=== PATIENT | female | born 1965 | race Caucasian/White ===

== ENCOUNTER 2020-10-29 16:40 | Emergency (ER) | payer BC, SELFPAY ==
--- NOTE | ~2020-10-29 | XR_ITS ---
EXAMINATION: XR chest 1V portable DATE: 10/29/2020 20:45 INDICATION: Transient alteration of awareness. TECHNIQUE: A single frontal view of the chest was obtained. COMPARISON: Chest 2 views 03/15/2017, chest CT 03/15/2017 FINDINGS: The chest demonstrates clear lungs without pneumonia, pleural effusion, or pneumothorax. Th e heart size is normal. IMPRESSION: 1. No acute cardiopulmonary disease. Reviewed, dictated and finalized at location A.
[2020-10-29 16:42] VITALS: BP 155/74; PULSE 73; RESP 20; TEMP 36.8; O2SAT 100
--- NOTE | 2020-10-29 16:46 | ECG_ITS ---
Measurements Intervals [place] Rate: 69 P: -3 [place]: 146 QRS: -25 QRSD: 85 T: 11 QT: 390 QTc: 421 Interpretive Statements SINUS RHYTHM POOR R WAVE PROGRESSION, ANTERIOR LEADS MINIMAL Q WAVES- HIGH LATERAL LEADS BORDERLINE T WAVE ABNORMALITY- INFERIOR LEADS BORDERLINE ECG Electronically Signed On 10-29-2020 20:09:37 CDT by Rom Velasco D.O.
--- NOTE | 2020-10-29 17:13 | ED.AMS ---
HPI - Altered Mental Status General Chief Complaint: Altered Mental Status Stated Complaint: CONFUSION, ? COVID Time Seen by Provider: 10/29/20 17:13 History of Present Illness HPI narrative: She reports that she had sharp pain in the chest and back at home. It was associated with SOB. She says that this felt similar to when she had a PE in the past. The chest pain has resolved, but she still has some pain in the back. Apparently after this pain started she had a period of confusion. She was reportedly acting like she does when she has hepatic encephalopathy. This semms to have resolved as well. She is on lovenox. Related Data Home Medications Medication Instructions Recorded Confirmed atorvastatin 20 mg PO DAILY 10/29/20 blood sugar diagnostic [Accu-Chek 10/29/20 10/29/20 Guide test strips] blood-glucose meter [Accu-Chek 10/29/20 10/29/20 Guide Me Glucose Mtr] cyanocobalamin (vitamin B-12) 500 mcg PO DAILY 10/29/20 enoxaparin 100 mg SUBCUT Q12H 10/29/20 gabapentin 600 mg PO HS 10/29/20 insulin glargine 22 unit SUBCUT HS 10/29/20 lactulose 15 ml PO DAILY 10/29/20 lansoprazole 30 mg PO DAILY 10/29/20 metoprolol tartrate 25 mg PO DAILY 10/29/20 Allergies Allergy/AdvReac Type Severity Reaction Status Date / Time tetracycline Allergy Mild Unknown Verified 10/29/20 19:50 amitriptyline Allergy Unknown Unknown Verified 10/29/20 19:50 doxycycline Allergy Unknown Unknown Verified 10/29/20 19:50 tramadol Allergy Unknown Hives / Verified 10/29/20 19:50 Red Face TRYPTALINE Allergy Mild Unknown Uncoded 10/29/20 19:50 Review of Systems Review of Systems: All systems reviewed & are unremarkable except as noted in HPI and below Constitutional: Constitutional: Denies fever(s) ENT: Reports dizziness Cardiovascular: Cardiovascular: Reports chest pain Respiratory: Respiratory: Denies cough and Reports dyspnea Gastrointestinal: Gastrointestinal: Denies abdominal pain and Reports nausea Genitourinary: Genitourinary: Reports no additional female genitourinary complaints Musculoskeletal: Musculoskeletal: Reports back pain Neurologic: Reports confusion, Reports dizziness and Reports weakness PMF Family History Family History (Updated 06/29/14 @ 11:22 by DOCTOR UNKNOWN) Other Carcinoma of colon Diabetes mellitus Family history of cardiovascular disease Social History Social History Smoking status: Current every day smoker Alcohol intake: never Gender identity (if verbalized by the patient): Female Exam Const: General: no acute distress and alert Nutritional Appearance: obese Orientation/consciousness: patient oriented x3 HENMT: Head: normal to inspection Eyes: Pupils: Equal, round and reactive pupils present Resp: Effort & Inspection: normal respiratory effort Auscultation: clear to auscultation bilaterally Cardio: Rate: regular rate Rhythm: regular rhythm GI: GI Palp: Yes Soft to palpation and No Tenderness to palpation present (GI) Skin: General skin exam: normal color Neuro: General: patient oriented x3, moves all extremities, no focal motor deficits and CN's II-XI intact bilaterally Speech: normal speech Extrem: General: normal to inspection and no edema Course Vital Signs Vital signs: Vital Signs Temperature 36.8 C 10/29/20 16:42 Pulse Rate 73 10/29/20 16:42 Respiratory Rate 20 10/29/20 16:42 Blood Pressure 155/74 H 10/29/20 16:42 Pulse Oximetry 100 10/29/20 16:42 Temperature 36.8 C 10/29/20 16:42 Pulse Rate 72 10/29/20 21:14 Respiratory Rate 16 10/29/20 21:14 Blood Pressure 130/60 10/29/20 21:14 Pulse Oximetry 100 10/29/20 21:14 MDM - Altered Mental Status MDM Narrative Medical decision making narrative: Work-up unrevealing. EKG shows no acute changes. Troponin negative x2. Medical Records Attestation: I reviewed the patient's medical records. Lab Data Attestation: I reviewed the patient's lab results. Resu
[2020-10-29 17:41] VITALS: BP 125/66; PULSE 67; RESP 18; O2SAT 98
[2020-10-29 17:43] LABS: Basophils Percent Auto 0.5 % (0.2-1.2); Eosinophils Absolute Auto 0.2 K/mm3 (0-0.3); Hematocrit 40.5 % (37.0-47.0); Hemoglobin 13.8 g/dL (12.0-15.0); Immature Granulocyte Absolute 0.01 K/mm3 (0.00-0.031); Immature Granulocyte Percent A 0.2 % (0-0.5); Immature Platelet Fraction Pct 7.2 % (0.9-11.2); Lymphocytes Percent Auto 40.4 % (18.3-44.2); Mean Corpuscular HGB Conc 34.1 g/dl (32-36); Mean Corpuscular Hemoglobin 32.3 pg (26-34); Mean Corpuscular Volume 94.8 fl (80-100); Mean Platelet Volume 11.2 fl (7.4-10.4); Monocytes Absolute Auto 0.4 K/mm3 (0.1-0.6); Monocytes Percent Auto 6.5 % (2.6-8.5); Neutrophils Absolute Auto 2.8 K/mm3 (1.3-6.7); Neutrophils Percent Auto 49.4 % (45.5-73.1); Platelet Count Result 120 k/mm3 (150-375); Red Blood Count 4.27 M/mm3 (4.2-5.4); White Blood Count 5.7 K/mm3 (4.5-10.0)
[2020-10-29 17:46] LABS: Ammonia < 9 umol/L (9-30)
[2020-10-29 17:55] LABS: Alanine Aminotransferase 35 U/L (4-35); Albumin Level 3.9 g/dL (3.5-5.1); Alkaline Phosphatase 133 U/L (38-126); Anion Gap 8 mmol/L (8-16); Aspartate Amino Transferase 41 U/L (14-36); Bilirubin,Total 0.5 mg/dL (0.2-1.3); Blood Urea Nitrogen 10 mg/dL (7-17); Calcium 9.5 mg/dL (8.4-10.2); Carbon Dioxide 24 mmol/L (22-30); Chloride 102 mmol/L (98-107); Estimated CRCL calculation 89 ml/min; Estimated Glomerular Filt Rate > 60; Glucose 187 mg/dL (65-110); Potassium 3.7 mmol/L (3.4-5.0); Sodium 134 mmol/L (137-145)
[2020-10-29 17:57] LABS: Add Urine Microscopic? NO; Appearance Urine Clear (Clear); Bilirubin Urine Negative (Negative); Blood Urine Negative (Negative); Color Urine Yellow (Yellow); Glucose Urine UA Negative (Negative); Ketones Urine Negative (Negative); Leukocyte Esterase Ur Negative LEU/UL (Negative); Nitrate Urine Negative (Negative); Protein Urine Negative (Negative); Urobilinogen Urine Negative mg/dL (<2.0)
[2020-10-29 19:01] VITALS: BP 105/56; PULSE 62; RESP 24; O2SAT 99
[2020-10-29 19:05] LABS: Troponin I < 0.012 ng/mL (0.000-0.034)
[2020-10-29 19:42] LABS: INR 0.9; Prothrombin Time 12.5 Seconds (11.1-14.7)
[2020-10-29 19:43] LABS: Partial Thromboplastin Time 28.8 SECONDS (22.3-36.8)
[2020-10-29 20:43] LABS: Troponin I 0.013 ng/mL (0.000-0.034)
[2020-10-29 21:14] VITALS: BP 130/60; PULSE 72; RESP 16; O2SAT 100
== END 2020-10-29 21:09 | disposition home or self-care (01) ==
PROVIDERS: Emergency Provider Emergency Medicine
DX: R07.9 Chest pain, unspecified (principal); R41.82 Altered mental status, unspecified; R06.02 Shortness of breath; F17.200 Nicotine dependence, unspecified, uncomplicated
CPT/HCPCS: 36415; 71045; 80053; 81003; 82140; 84484; 85025; 85055; 85610; 85730; 93005; 99284

== ENCOUNTER 2023-07-03 18:08 | Emergency (ER) | payer MEDICAID, SELFPAY ==
--- NOTE | ~2023-07-03 | CT_ITS ---
EXAMINATION: CTA chest PE protocol DATE: 07/03/2023 22:36 INDICATION: Chest pain. Shortness of breath. TECHNIQUE: Computed tomography angiography (CTA) of the chest was performed with 100 mL Omnipaque-350 intravenous contrast timed to evaluate the pulmonary arteries. Coronal maximum intensity projection 3D-reconstructions were created by the technologist. Automated exposure control and iterative reconst ruction technique were employed. The dose-length product was 313.82 mGy-cm. COMPARISON: Chest CT 03/15/2017 FINDINGS: The lungs demonstrate mild atelectasis. There is air trapping in lateral segment right midd le lobe. No pleural effusion. The heart size is normal. There is no pulmonary embolus. There are aguirre ges of cholecystectomy. The liver demonstrates surface nodularity, consistent with cirrhosis. There i s mild thoracic spondylosis. IMPRESSION: 1. No pulmonary embolus. 2. Cirrhosis of the liver. Reviewed, dictated and finalized at location E.
--- NOTE | ~2023-07-03 | XR_ITS ---
EXAMINATION: XR chest 2V DATE: 07/03/2023 18:31 INDICATION: Sternal chest pain. TECHNIQUE: Frontal and lateral views of the chest were obtained. COMPARISON: Chest single view 10/29/2020 FINDINGS: There is no pneumonia, pleural effusion, or pneumothorax. The heart size is normal. There a re surgical clips in the abdomen. IMPRESSION: 1. No acute cardiopulmonary disease. Reviewed, dictated and finalized at location E.
--- NOTE | 2023-07-03 18:10 | ECG_ITS ---
SEE SCANNED COPY FOR CONFIRMED REPORT MTDD
[2023-07-03 18:11] VITALS: BP 151/78; PULSE 72; RESP 18; TEMP 36.5; O2SAT 100
[2023-07-03 18:36] LABS: Basophils Percent Auto 0.3 % (0.2-1.2); Eosinophils Absolute Auto 0.2 K/mm3 (0-0.3); Eosinophils Percent Auto 2.5 % (0-4.4); Hematocrit 36.6 % (37.0-47.0); Hemoglobin 12.6 g/dL (12.0-15.0); Immature Granulocyte Absolute 0.02 K/mm3 (0.00-0.031); Immature Granulocyte Percent A 0.3 % (0-0.5); Immature Platelet Fraction Pct 4.8 % (0.9-11.2); Lymphocytes Absolute Auto 2.43 K/mm3 (0.9-3.2); Lymphocytes Percent Auto 33.6 % (18.3-44.2); Mean Corpuscular HGB Conc 34.4 g/dl (32-36); Mean Corpuscular Hemoglobin 32.1 pg (26-34); Mean Corpuscular Volume 93.1 fl (80-100); Monocytes Absolute Auto 0.5 K/mm3 (0.1-0.6); Monocytes Percent Auto 6.6 % (2.6-8.5); Neutrophils Absolute Auto 4.1 K/mm3 (1.3-6.7); Neutrophils Percent Auto 56.7 % (45.5-73.1); Platelet Count Result 132 k/mm3 (150-375); Red Blood Count 3.93 M/mm3 (4.2-5.4); Red Cell Distribution Width 13.3 % (11.5-14.5); White Blood Count 7.2 K/mm3 (4.5-10.0)
[2023-07-03] MEDS: ASPIRIN 81 MG CHEWABLE TABLET 324 MG PO (18:39)
[2023-07-03 18:45] LABS: Partial Thromboplastin Time 30.6 Seconds (22.3-36.8); Prothrombin Time 14.1 Seconds (11.1-14.7)
[2023-07-03 18:47] LABS: Alanine Aminotransferase 19 U/L (6-35); Albumin Level 4.4 g/dL (3.5-5.1); Alkaline Phosphatase 99 U/L (38-126); Anion Gap 7 mmol/L (4-12); Aspartate Amino Transferase 28 U/L (14-36); Blood Urea Nitrogen 12 mg/dL (7-17); Calcium 10.2 mg/dL (8.4-10.2); Carbon Dioxide 26 mmol/L (22-30); Chloride 107 mmol/L (98-107); Estimated CRCL calculation 75 ml/min; Estimated Glomerular Filt Rate > 60; Glucose 110 mg/dL (65-110); Lipase 92 U/L (23-300); Potassium 3.8 mmol/L (3.4-5.0); Sodium 140 mmol/L (137-145)
[2023-07-03 18:59] LABS: Troponin I < 0.012 ng/mL (0.000-0.034)
[2023-07-03 19:51] VITALS: BP 149/71; PULSE 68; RESP 20; O2SAT 100
--- NOTE | 2023-07-03 21:11 | ED.CHESTPAIN ---
HPI - Chest Pain General Chief Complaint: Chest Pain Stated Complaint: left sided chest pain Time Seen by Provider: 07/03/23 21:02 History of Present Illness HPI narrative: Patient is 57-year-old female who presents to the emergency department in complaining of left-sided chest pain. Pain started around 9:00 a.m. this morning while patient was at work. Patient states that she continues to work and finished her shift, however, the pain continued to persist. Patient states that the pain is underneath her left breast and she can reproduce it if she presses on the area. Patient also admits to history of lupus and antiphospholipid syndrome and states that she had similar pain when she had a blood clot in her lung. Patient denies any sharp stabbing chest pain. She admits that the pain is worse when she takes a deep breath. Denies any recent fevers or chills in any recent URI symptoms. Patient denies any nausea or vomiting. No additional symptoms or concerns at this time. Related Data Home Medications Medication Instructions Recorded Confirmed atorvastatin 20 mg tablet 20 mg PO DAILY 10/29/20 blood sugar diagnostic (Accu-Chek 10/29/20 10/29/20 Guide test strips) blood-glucose meter (Accu-Chek 10/29/20 10/29/20 Guide Me Glucose Meter) cyanocobalamin (vitamin B-12) 500 500 mcg PO DAILY 10/29/20 mcg tablet enoxaparin 100 mg/mL subcutaneous 100 mg subcut Q12H 10/29/20 syringe gabapentin 600 mg tablet 600 mg PO HS 10/29/20 insulin glargine 100 unit/mL (3 22 unit subcut HS 10/29/20 mL) subcutaneous pen lactulose 10 gram/15 mL oral 15 ml PO DAILY 10/29/20 solution lansoprazole 30 mg capsule,delayed 30 mg PO DAILY 10/29/20 release metoprolol tartrate 25 mg tablet 25 mg PO DAILY 10/29/20 Allergies Allergy/AdvReac Type Severity Reaction Status Date / Time tetracycline Allergy Mild Unknown Verified 07/03/23 19:52 amitriptyline Allergy Unknown Unknown Verified 07/03/23 19:52 doxycycline Allergy Unknown Unknown Verified 07/03/23 19:52 tramadol Allergy Unknown Hives / Verified 07/03/23 19:52 Red Face TRYPTALINE Allergy Mild Unknown Uncoded 04/25/24 19:52 Review of Systems Review of Systems: All systems are reviewed and are negative unless stated otherwise in the HPI. [facility] Family History Family History Other Carcinoma of colon Diabetes mellitus Family history of cardiovascular disease Social History Social History Smoking status: Current every day smoker Alcohol intake: never Gender identity (if verbalized by the patient): Female Exam Narrative: General: Alert, awake, afebrile, in no acute distress. HEENT: PERRL, no rhinorrhea, no post nasal drip, oropharynx clear. Neck: Trachea midline, no JVD, no lymphadenopathy. Cardiovascular: Regular rate and rhythm, no murmurs, rubs or gallops, no peripheral edema. Respiratory: Clear to auscultation bilaterally, no tachypnea, no wheezing, no rhonchi, no rubs, no respiratory distress. Abdomen: Soft, nontender, nondistended, no rebound, no guarding, no peritoneal signs. Musculoskeletal: Tenderness to palpation over the left lower rib cage below patient's breast. Skin: No rashes or petechia, no signs of infection. Psychiatric: Alert and oriented, normal behavior and judgment for situation. Neurological: Alert and oriented to person, place, and time. Follows all commands. No focal deficits, speech is clear and fluent. Course Vital Signs Vital signs: Vital Signs Temperature 97.7 F 07/03/23 18:11 Pulse Rate 72 07/03/23 18:11 Respiratory Rate 18 07/03/23 18:11 Blood Pressure 151/78 H 07/03/23 18:11 Pulse Oximetry 100 07/03/23 18:11 Oxygen Delivery Room Air 07/03/23 18:11 Temperature 97.7 F 07/03/23 18:11 Pulse Rate 69 07/03/23 23:11 Respiratory Rate 18 07/03/23 23:11 Blood Pressure 155/60 H
--- NOTE | 2023-07-03 21:28 | ECG_ITS ---
SEE SCANNED COPY FOR CONFIRMED REPORT MTDD
[2023-07-03 21:34] LABS: Troponin I < 0.012 ng/mL (0.000-0.034)
--- NOTE | 2023-07-03 21:34 | ECG_ITS ---
SEE SCANNED COPY FOR CONFIRMED REPORT MTDD
[2023-07-03 21:40] VITALS: BP 123/56; PULSE 65; RESP 14; O2SAT 98
[2023-07-03] MEDS: MORPHINE SULFATE (*CRX) 4 MG/ML INJ IV PUSH (22:43)
[2023-07-03] MEDS: ONDANSETRON INJ 4 MG/2 ML VIAL IV PUSH (22:43)
[2023-07-03 23:11] VITALS: BP 155/60; PULSE 69; RESP 18; O2SAT 99
== END 2023-07-03 23:34 | disposition home or self-care (01) ==
PROVIDERS: Student in an Organized Health Care Education/Training Program; Emergency Provider Emergency Medicine
DX: R07.81 Pleurodynia (principal); F17.200 Nicotine dependence, unspecified, uncomplicated; M32.9 Systemic lupus erythematosus, unspecified; D68.61 Antiphospholipid syndrome; K74.60 Unspecified cirrhosis of liver; R94.31 Abnormal electrocardiogram [ECG] [EKG]; Z79.4 Long term (current) use of insulin
CPT/HCPCS: 36415; 71046; 71275; 80053; 83690; 84484; 85025; 85055; 85610; 85730; 93005; 96374; 96375; 99284; A9270; J2270; J2405; Q9967

== ENCOUNTER 2024-02-04 08:53 | Emergency (ER) | payer OTHER, SELFPAY ==
--- NOTE | ~2024-02-04 | XR_ITS ---
EXAMINATION: XR foot LT min 3V DATE: 02/04/2024 09:18 INDICATION: Left foot pain and swelling. Fall. TECHNIQUE: 4 views of left foot were obtained. COMPARISON: None. FINDINGS: There is lateral subluxation of second metatarsal with respect to the intermediate cuneifor m. No acute fracture. There are old healed fracture of the diaphyses of the second-fourth proximal ph alanges. There is mild osteoarthritis of first metatarsophalangeal joint and some of the midfoot join ts. There is an enthesophyte at plantar aspect of calcaneal tuberosity. IMPRESSION: 1. Lateral subluxation of second metatarsal suspicious for Lisfranc ligament tear. 2. Mild polyarticular osteoarthritis. Reviewed, dictated and finalized at location A. [facility] IMPRESSION: 1. Lateral subluxation of second metatarsal suspicious for Lisfranc ligament te ar. 2. Mild polyarticular osteoarthritis.
--- NOTE | ~2024-02-04 | XR_ITS ---
EXAMINATION: XR tibia fibula LT 2V DATE: 02/04/2024 09:18 INDICATION: Left lower extremity pain. Fall. TECHNIQUE: 2 views of left tibia and fibula on 3 radiographs were obtained. COMPARISON: None. FINDINGS: There is a comminuted fracture of proximal fibular diaphysis. The main distal fracture frag ment demonstrates 3 mm anterior displacement. There is heterotopic ossification distal to medial mall eolus from old injury. There is mild midfoot osteoarthritis. There is an osteochondral lesion of medi al talar dome. IMPRESSION: 1. Comminuted fractured of proximal fibular diaphysis. 2. Polyarticular osteoarthritis. Reviewed, dictated and finalized at location A. [facility]
[2024-02-04 08:54] VITALS: BP 138/58; PULSE 73; RESP 18; TEMP 36.1; O2SAT 100
--- NOTE | 2024-02-04 09:27 | ED_ITS ---
HPI - Extremity Injury (Lower) General Chief Complaint: Extremity Injury, Lower Stated Complaint: fall Time Seen by Provider: 02/04/24 09:16 Source: patient Mode of arrival: ambulatory Limitations: no limitations History of Present Illness HPI Narrative: This is a 58-year-old female who presents to the ED for chief complaint of left lower extremity injury that occurred yesterday evening while at work. 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 States that she slipped on a wet spot and injured the left ankle and left jasso. States that she went down to the ground but does not have any further sites of pain or injury. Denies numbness or weakness. Related Data Home Medications Medication Instructions Recorded Confirmed atorvastatin 20 mg tablet 20 mg PO DAILY 10/29/20 blood sugar diagnostic (Accu-Chek 10/29/20 10/29/20 Guide test strips) blood-glucose meter (Accu-Chek 10/29/20 10/29/20 Guide Me Glucose Meter) cyanocobalamin (vitamin B-12) 500 500 mcg PO DAILY 10/29/20 mcg tablet enoxaparin 100 mg/mL subcutaneous 100 mg subcut Q12H 10/29/20 syringe gabapentin 600 mg tablet 600 mg PO HS 10/29/20 insulin glargine 100 unit/mL (3 22 unit subcut HS 10/29/20 mL) subcutaneous pen lactulose 10 gram/15 mL oral 15 ml PO DAILY 10/29/20 solution lansoprazole 30 mg capsule,delayed 30 mg PO DAILY 10/29/20 release metoprolol tartrate 25 mg tablet 25 mg PO DAILY 10/29/20 Allergies Allergy/AdvReac Type Severity Reaction Status Date / Time tetracycline Allergy Mild Unknown Verified 02/04/24 08:54 amitriptyline Allergy Unknown Unknown Verified 02/04/24 08:54 doxycycline Allergy Unknown Unknown Verified 02/04/24 08:54 tramadol Allergy Unknown Hives / Verified 02/04/24 08:54 Red Face TRYPTALINE Allergy Mild Unknown Uncoded 02/04/24 08:54 Review of Systems Review of Systems: All systems as dictated in HPI [facility] Family History Family History Other Carcinoma of colon Diabetes mellitus Family history of cardiovascular disease Social History Social History Smoking status: Current every day smoker Alcohol intake: never Gender identity (if verbalized by the patient): Female Exam Narrative: GENERAL: Well-appearing, well-nourished, and in no acute distress. HEAD: Normocephalic, atraumatic. EYES: PERRLA and EOMI. ENT: Nares clear, no rhinorrhea or epistaxis. Mucous membranes moist. Oropharynx without tonsillar hypertrophy exudate or other lesions. NECK: Supple. No adenopathy or masses. CHEST: No respiratory distress. Clear to auscultation. No wheezes rales or rhonchi HEART: Regular rate and rhythm. No murmur heard. Normal peripheral pulses. ABDOMEN: Soft, nontender, nondistended, normal active bowel sounds. MSK: LLE: Tenderness to proximal left lateral calf. Tenderness to dorsal foot. Mild swelling about the ankle. No gross deformity. Pulses intact distally RLE: Benign SKIN: Warm, dry, no rash. NEURO: Alert and oriented x4. No focal deficits. PSYCH: Normal mood and affect. Course Vital Signs Vital signs: Vital Signs Temperature 97.0 F L 02/04/24 08:54 Pulse Rate 73 02/04/24 08:54 Respiratory Rate 18 02/04/24 08:54 Blood Pressure 138/58 L 02/04/24 08:54 Pulse Oximetry 100 02/04/24 08:54 Oxygen Delivery Room Air 02/04/24 08:54 Temperature 97.0 F L 02/04/24 08:54 Pulse Rate 53 L 02/04/24 10:53 Respiratory Rate 18 02/04/24 10:53 Blood Pressure 125/65 02/04/24 10:53 Pulse Oximetry 99 02/04/24 10:53 Oxygen Delivery Room Air 02/04/24 08:54 MDM - Extremity Injury (Lower) MDM Narrative Medical decision making narrative: This is a 58-year-old female who presents to the ED for chief complaint of left lower extremity pain and swelling after a fall last night. Vitals are normal. Exam shows left ankle swelling and proximal jasso tenderness. Left tib-fib and ankle x-rays: IMPRESSION: 1. Comminuted fractured of proximal fibular diaphysis. 2. Polyarticular osteoarthritis. IMPRESSION: 1. Lateral subluxation of second metatarsal suspicious for Lisfranc ligament tear. 2. Mild polyarticular osteoarthritis. Patient was placed in a posterior long-leg splint for the evidence of Lisfranc and proximal fibula fracture. Potential for combination of Lisfranc injury and [place] injury. Patient will be discharged in stable condition. Supportive measures discussed and return precautions given. Patient is understanding and agreeable with plan for discharge with PCP follow-up. Discharge Plan Discharge Clinical Impression: Fracture of fibula, proximal, Lisfranc dislocation Patient Disposition: Home, Self-Care Condition: Stable Instructions: Antibiotic Form Additional Instructions: Your exam today shows fracture in this jasso as well as dislocation of a bone in the foot. Please use splint until otherwise directed by Orthopedics. Use [place] for pain as needed, otherwise take your normal [id number] pain medications regularly for pain and swelling. If you have any new or worsening symptoms please return to the ER for further evaluation. Prescriptions: New hydrocodone-acetaminophen 5-325 mg tablet 1 tablet PO Q8H PRN (Reason: pain) Qty: 14 0RF No Action gabapentin 600 mg Tablet 600 mg PO HS atorvastatin 20 mg Tablet 20 mg PO DAILY (DME) blood-glucose meter [Accu-Chek Guide Me Glucose Mtr] Misc MISCELLANEOUS (DME) Accu-Chek Guide test strips Strip MISCELLANEOUS cyanocobalamin (vitamin B-12) 500 mcg Tablet 500 mcg PO DAILY lansoprazole 30 mg Capsule,Delayed Release(Dr/Ec) 30 mg PO DAILY enoxaparin 100 mg/mL Syringe 100 mg SUBCUT Q12H metoprolol tartrate 25 mg Tablet 25 mg PO DAILY lactulose 10 gram/15 mL Solution 15 ml PO DAILY insulin glargine 100 unit/mL (3 mL) Insulin Pen 22 unit SUBCUT HS Follow-up/Referrals: Malachi Real MD [Physician] - UNKNOWN,DOCTOR [Primary Care Provider] - Stand Alone Forms: Work/School Release IP Time of Disposition: 09:37
[2024-02-04] MEDS: HYDROcodone/acetaminophen (*CRX) 5-325 MG TABLET 1 TAB PO (09:35)
[2024-02-04 10:53] VITALS: BP 125/65; PULSE 53; RESP 18; O2SAT 99
--- NOTE | 2024-02-04 10:55 | PC.NURSE ---
Splint approved by BARBARA Martinez prior to departure.
== END 2024-02-04 10:56 | disposition home or self-care (01) ==
LOC: ANHED 09:44
PROVIDERS: Emergency Provider Physician Assistant
DX: S89.292A Other physeal fracture of upper end of left fibula, initial encounter for closed fracture (principal); S93.325A Dislocation of tarsometatarsal joint of left foot, initial encounter; F17.200 Nicotine dependence, unspecified, uncomplicated; M19.072 Primary osteoarthritis, left ankle and foot; W01.0XXA Fall on same level from slipping, tripping and stumbling without subsequent striking against object, initial encounter
CPT/HCPCS: 29505; 73590; 73630; 99284; A9270

== ENCOUNTER 2024-02-04 18:11 | Emergency (ER) | payer OTHER, SELFPAY ==
[2024-02-04 18:13] VITALS: BP 146/64; PULSE 73; RESP 15; TEMP 36.7; O2SAT 99
--- NOTE | 2024-02-04 18:27 | ED.LOWEXIN ---
HPI - Extremity Injury (Lower) General Chief Complaint: Extremity Injury, Lower Stated Complaint: left foot numb Time Seen by Provider: 02/04/24 18:24 Source: patient Mode of arrival: ambulatory Limitations: no limitations History of Present Illness HPI Narrative: This is a 58-year-old female who presents to the ED via EMS for chief complaint of pain and numbness to the left foot. Patient was seen at this facility by myself earlier today for left foot and LLE injury. She was placed in a posterior long leg splint. She is returning today because the pain became severe and was not treated by [facility]. She thinks that the splint is too tight. Denies loss of sensation or weakness of the leg/foot. Denies fevers, chills. Related Data Home Medications Medication Instructions Recorded Confirmed atorvastatin 20 mg tablet 20 mg PO DAILY 10/29/20 blood sugar diagnostic (Accu-Chek 10/29/20 10/29/20 Guide test strips) blood-glucose meter (Accu-Chek 10/29/20 10/29/20 Guide Me Glucose Meter) cyanocobalamin (vitamin B-12) 500 500 mcg PO DAILY 10/29/20 mcg tablet enoxaparin 100 mg/mL subcutaneous 100 mg subcut Q12H 10/29/20 syringe gabapentin 600 mg tablet 600 mg PO HS 10/29/20 insulin glargine 100 unit/mL (3 22 unit subcut HS 10/29/20 mL) subcutaneous pen lactulose 10 gram/15 mL oral 15 ml PO DAILY 10/29/20 solution lansoprazole 30 mg capsule,delayed 30 mg PO DAILY 10/29/20 release metoprolol tartrate 25 mg tablet 25 mg PO DAILY 10/29/20 Allergies Allergy/AdvReac Type Severity Reaction Status Date / Time tetracycline Allergy Mild Unknown Verified 02/04/24 08:54 amitriptyline Allergy Unknown Unknown Verified 02/04/24 08:54 doxycycline Allergy Unknown Unknown Verified 02/04/24 08:54 tramadol Allergy Unknown Hives / Verified 02/04/24 08:54 Red Face TRYPTALINE Allergy Mild Unknown Uncoded 02/04/24 08:54 Review of Systems Review of Systems: All systems as dictated in HPI [facility] Family History Family History Other Carcinoma of colon Diabetes mellitus Family history of cardiovascular disease Social History Social History Smoking status: Current every day smoker Alcohol intake: never Gender identity (if verbalized by the patient): Female Exam Narrative: GENERAL: Well-appearing, well-nourished, and in no acute distress. HEAD: Normocephalic, atraumatic. EYES: PERRLA and EOMI. ENT: Nares clear, no rhinorrhea or epistaxis. Mucous membranes moist. Oropharynx without tonsillar hypertrophy exudate or other lesions. NECK: Supple. No adenopathy or masses. CHEST: No respiratory distress. Clear to auscultation. No wheezes rales or rhonchi HEART: Regular rate and rhythm. No murmur heard. Normal peripheral pulses. ABDOMEN: Soft, nontender, nondistended, normal active bowel sounds. MSK: Normal range of motion. No edema. LLE: Holden wrap and splint were removed. Compartments are soft throughout the leg and foot. Cap refill is intact in the toes. Sensation intact. Minimal tenderness. RLE: Benign SKIN: Warm, dry, no rash. NEURO: Alert and oriented x4. No focal deficits. PSYCH: Normal mood and affect. Course Vital Signs Vital signs: Vital Signs Temperature 98.0 F 02/04/24 18:13 Pulse Rate 73 02/04/24 18:13 Respiratory Rate 15 02/04/24 18:13 Blood Pressure 146/64 H 02/04/24 18:13 Pulse Oximetry 99 02/04/24 18:13 Oxygen Delivery Room Air 02/04/24 18:13 Temperature 98.0 F 02/04/24 18:13 Pulse Rate 73 02/04/24 18:13 Respiratory Rate 15 02/04/24 18:13 Blood Pressure 146/64 H 02/04/24 18:13 Pulse Oximetry 99 02/04/24 18:13 Oxygen Delivery Room Air 02/04/24 18:13 Procedures Orthopedic Splinting/Casting Injury #1: Splinting/Casting Date: 02/04/24 Splinting/Casting Time: 18:42 Side: left Lower Extremity Injury Location: upper leg and lower leg Lower Extremity Immobilizer: posterior splint Splint: customized in ED OCL: long leg Pre-Procedure Neuro Vascular Exam: normal Post-Procedure Neuro Vascular Exam: normal Other Orthopedic Equipment: crutches MDM - Extremity Injury (Lower) MDM Narrative Medical decision making narrative: This is a 58-year-old female who presents to the ED for chief complaint of lower extremity pain after having splint placed earlier today. Vitals are normal. The splint and Holden wrap were removed. The compartments to the leg are soft and cap refill is intact. No evidence of compartment syndrome on exam. Neurovascularly intact Patient feels immediate relief with splint removal. Feel that the splint was likely too tight. We will re-shape a new splint today. A new long-leg posterior was placed patient has significant relief with this. Remains neurovascularly intact after the 2nd splint has been placed today. Patient will be discharged in stable condition. Supportive measures discussed and return precautions given. Patient is understanding and agreeable with plan for discharge with PCP follow-up. Discharge Plan Discharge Clinical Impression: Leg pain, left Patient Disposition: Home, Self-Care Condition: Stable Instructions: Antibiotic Form Additional Instructions: Exam today showed that you splint was too tight. Able to replace the splint. If you have any new or worsening symptoms please return to the ER for further evaluation. Prescriptions: No Action hydrocodone-acetaminophen 5-325 mg tablet 1 tablet PO Q8H PRN (Reason: pain) Qty: 14 0RF gabapentin 600 mg Tablet 600 mg PO HS atorvastatin 20 mg Tablet 20 mg PO DAILY (DME) blood-glucose meter [Accu-Chek Guide Me Glucose Mtr] Misc MISCELLANEOUS (DME) Accu-Chek Guide test strips Strip MISCELLANEOUS cyanocobalamin (vitamin B-12) 500 mcg Tablet 500 mcg PO DAILY lansoprazole 30 mg Capsule,Delayed Release(Dr/Ec) 30 mg PO DAILY enoxaparin 100 mg/mL Syringe 100 mg SUBCUT Q12H metoprolol tartrate 25 mg Tablet 25 mg PO DAILY lactulose 10 gram/15 mL Solution 15 ml PO DAILY insulin glargine 100 unit/mL (3 mL) Insulin Pen 22 unit SUBCUT HS Follow-up/Referrals: UNKNOWN,DOCTOR [Primary Care Provider] - Time of Disposition: 18:42
== END 2024-02-04 19:05 | disposition home or self-care (01) ==
PROVIDERS: Emergency Provider Physician Assistant
DX: S89.92XD Unspecified injury of left lower leg, subsequent encounter (principal); F17.200 Nicotine dependence, unspecified, uncomplicated; X58.XXXD Exposure to other specified factors, subsequent encounter; Z79.4 Long term (current) use of insulin; Z79.899 Other long term (current) drug therapy
CPT/HCPCS: 29505; 99282

== ENCOUNTER 2024-02-17 14:51 | Outpatient (CLI) | payer OTHER, SELFPAY ==
--- NOTE | ~2024-02-17 | CT_ITS ---
EXAMINATION: CT foot LT wo con DATE: 02/17/2024 15:14 INDICATION: Dislocation tarsometatarsal joint. TECHNIQUE: Computed tomography (CT) of the left foot was performed without intravenous contrast. Auto mated exposure control and iterative reconstruction technique were employed. The dose-length product was 468.38 mGy-cm. COMPARISON: Left foot radiographs 02/04/2024 FINDINGS: There is a fracture of anterolateral aspect of tibial plafond with 2 mm displacement. There is an avulsion fracture of the anteroinferior tip of medial malleolus. There is an osteochondral les ion of medial talar dome. There is mild osteoarthritis of many of the first metatarsophalangeal joint and many of the interphalangeal joints and midfoot joints. There is severe osteoarthritis of second tarsometatarsal joint and moderate osteoarthritis of third tarsometatarsal joint. There is lateral hobson bluxation of second and third metatarsals with respect to the tarsals. There is ankle soft tissue swe lling. IMPRESSION: 1. Fracture of the anterolateral aspect of tibial plafond. 2. Avulsion fracture of the anteroinferior tip of medial malleolus. 3. Osteochondral lesion of medial talar dome. 4. Lisfranc joint subluxation, likely chronic. 5. Polyarticular osteoarthritis. Reviewed, dictated and finalized at location A[facility]
== END 2024-02-17 14:52 | disposition home or self-care (01) ==
LOC: ANHIMG 15:00
PROVIDERS: Visit Provider Orthopaedic Surgery
DX: S93.325A Dislocation of tarsometatarsal joint of left foot, initial encounter (principal); S82.52XA Displaced fracture of medial malleolus of left tibia, initial encounter for closed fracture; S92.142A Displaced dome fracture of left talus, initial encounter for closed fracture; M79.672 Pain in left foot
CPT/HCPCS: 73700